=== PATIENT | female | born 1985 | race Caucasian/White ===

== ENCOUNTER 2019-01-18 22:28 | Emergency (ER) | payer MEDICAID ==
[~2019-01-18] VITALS: Ht 162.6 cm; Wt 94.8 kg
[2019-01-18 22:44] VITALS: Ht 162.6 cm; Wt 94.8 kg
[2019-01-19 01:14] LABS: BASOPHIL % 0.3 % (0-2); PLATELET COUNT 193 x10^3mcL (130-400)
[2019-01-19 01:16] LABS: RED CELL DISTRIBUTION WIDTH 14.6 % (11.5-14.5)
[2019-01-19 01:17] LABS: CARBON DIOXIDE 29.1 mmol/L (21-32); CHLORIDE SERUM 107 mmol/L (98-107); CREATININE SERUM 0.7 mg/dL (0.6-1.0); GFR1 > 60 mL/min; GLUCOSE SERUM 92 mg/dL (74-106); POTASSIUM SERUM 3.9 mmol/L (3.5-5.1); SODIUM SERUM 140 mmol/L (136-145)
[2019-01-19 01:22] LABS: ALKALINE PHOSPHATASE 84 U/L (46-116); ALT/SGPT 32 U/L (14-59); AST/SGOT 15 U/L (15-37); BILIRUBIN TOTAL 0.19 mg/dL (0.20-1.00); LIPASE 122 IU/L (73-393); TOTAL PROTEIN, SERUM 6.5 g/dL (6.4-8.2)
[2019-01-19 01:46] LABS: ALBUMIN 3.3 g/dL (3.4-5.0)
[2019-01-19 02:55] VITALS: BP 104/53
== END 2019-01-19 02:25 | disposition home or self-care (01) ==
LOC: ED 22:28
PROVIDERS: Emergency Medicine
DX: R10.13 Epigastric pain (principal); R10.11 Right upper quadrant pain; Z98.890 Other specified postprocedural states
CPT/HCPCS: 36415; J1885

== ENCOUNTER 2019-10-02 23:01 | Emergency (ER) | payer MEDICAID ==
[~2019-10-02] VITALS: Ht 157.5 cm; Wt 102.5 kg
[2019-10-02 23:22] VITALS: Ht 157.5 cm; Wt 102.5 kg
[2019-10-03 06:22] VITALS: BP 115/38
== END 2019-10-03 06:22 | disposition home or self-care (01) ==
LOC: ED 23:01
DX: M25.561 Pain in right knee (principal)
CPT/HCPCS: Q0092

== ENCOUNTER 2019-11-01 20:51 | Emergency (ER) | payer MEDICAID ==
[~2019-11-01] VITALS: Ht 165.1 cm; Wt 105.2 kg
[2019-11-01 20:53] VITALS: Ht 165.1 cm; Wt 105.2 kg
[2019-11-01 22:13] VITALS: BP 114/72
== END 2019-11-01 22:13 | disposition home or self-care (01) ==
LOC: ED 20:51
DX: J06.9 Acute upper respiratory infection, unspecified (principal)
CPT/HCPCS: 87804

== ENCOUNTER 2020-04-02 18:22 | Emergency (ER) | payer MEDICAID ==
[~2020-04-02] VITALS: Ht 160 cm; Wt 100.2 kg
[~2020-04-02 18:22] MED LIST: FORTAMET500 M1 PO
[2020-04-02 18:33] VITALS: Ht 160 cm; Wt 100.2 kg
[2020-04-02 19:18] LABS: BASOPHIL % 0.6 % (0-2); PLATELET COUNT 297 x10^3mcL (130-400); RED CELL DISTRIBUTION WIDTH 22.7 % (11.5-14.5)
[2020-04-02 19:26] LABS: CALCIUM 8.6 mg/dL (8.5-10.1); CARBON DIOXIDE 29.2 mmol/L (21-32); CHLORIDE SERUM 104 mmol/L (98-107); CREATININE SERUM 0.7 mg/dL (0.6-1.0); GFR1 > 60 mL/min; GLUCOSE SERUM 96 mg/dL (74-106); POTASSIUM SERUM 4.2 mmol/L (3.5-5.1); SODIUM SERUM 141 mmol/L (136-145)
[2020-04-02 19:30] LABS: ALKALINE PHOSPHATASE 148 U/L (46-116); ALT/SGPT 95 U/L (14-59); AST/SGOT 28 U/L (15-37); BILIRUBIN TOTAL 0.2 mg/dL (0.20-1.00); TOTAL PROTEIN, SERUM 7.1 g/dL (6.4-8.2)
[2020-04-02 19:31] LABS: ALBUMIN 3.2 g/dL (3.4-5.0)
[2020-04-02 20:04] VITALS: BP 109/44
== END 2020-04-02 21:48 | disposition home or self-care (01) ==
LOC: ED 18:22
PROVIDERS: Emergency Medicine
DX: L76.22 Postprocedural hemorrhage of skin and subcutaneous tissue following other procedure (principal); D64.9 Anemia, unspecified; Z90.49 Acquired absence of other specified parts of digestive tract; Z98.890 Other specified postprocedural states; Z86.2 Personal history of diseases of the blood and blood-forming organs and certain disorders involving the immune mechanism